=== PATIENT | female | born 1990 | race African-American/Black ===

== ENCOUNTER 2017-09-22 22:29 | Emergency (ER) | payer SELFPAY ==
[~2017-09-22] VITALS: Ht 162.6 cm; Wt 62.0 kg
[2017-09-22 22:35] VITALS: BP 111/64
== END 2017-09-23 03:15 | disposition left against medical advice (07) ==
LOC: ER 22:39
DX: F41.9 Anxiety disorder, unspecified (principal); Z53.21 Procedure and treatment not carried out due to patient leaving prior to being seen by health care provider

== ENCOUNTER 2022-09-12 22:28 | Emergency (ER) | payer SELFPAY ==
[~2022-09-12] VITALS: Ht 165.1 cm; Wt 80.0 kg
[2022-09-12 22:47] VITALS: BP 144/87
[2022-09-13] MEDS: FLUORESCEIN SODIUM 1MG/STRIP RIGHTEYE ONE
[2022-09-13] MEDS: TETRACAINE 0.5% OPHTH DROPS 4ML RIGHTEYE ONE
[2022-09-13] MEDS ORDERED: KETO5DRO80 RIGHTEYE (01:22)
[2022-09-13] MEDS ORDERED: ERYT1OIN6 EACHEYE (01:22)
== END 2022-09-13 02:12 | disposition home or self-care (01) ==
LOC: ER 22:28
DX: S05.01XA Injury of conjunctiva and corneal abrasion without foreign body, right eye, initial encounter (principal); Y08.89XA Assault by other specified means, initial encounter; Y93.89 Activity, other specified; Y92.89 Other specified places as the place of occurrence of the external cause; Y99.8 Other external cause status; F12.10 Cannabis abuse, uncomplicated; Z79.899 Other long term (current) drug therapy
CPT/HCPCS: 99283